=== PATIENT | female | born 1945 | race Caucasian/White ===

== ENCOUNTER → 2017-01-04 | Day surgery (SDC) | payer MEDICAID, MEDICARE ==
[~2017-01-04] VITALS: Ht 175.3 cm; Wt 86.2 kg
[~2017-01-04] MED LIST: ACETAMINOPHEN 325 MG TAB PO PRN; AMIT25TA PO; ASPI1TAB PO; AZEL0.1S3; AcetaZOLAMIDE 500 MG ER CAP PO ONE; BSS with VANC/TOB/EPI for EYE CASES IR ONE; CEFUROXIME 1MG/0.1ML INTRACAMERAL INJ As Ordered ONE; CITA40TA4 PO; CRES5TAB PO; CYCLOPENTOLATE 2% OPHTH SOLN 2ML BTL As Ordered ONE; CYCLOPENTOLATE 2% OPHTH SOLN 2ML BTL OD ONE; D5W/0.2% SODIUM CHLORIDE 1,000 ML IV SCH; DEXI60CA PO; HEALON DUET (HEALON 10MG/ML 0.55ML & HEALON ENDOCOAT 30MG/ML 0.85ML) As Ordered ONE; KETOROLAC 0.5% OPHTH SOLN OD ONE; LATA5OPD OU; LEVE1INJ5 SC; LIDOCAINE 1% SDV 5 ML VIAL As Ordered ONE; LIDOCAINE 4% INJ 5 ML AMP OU ONE; LISI-538 PO; MIDAZOLAM INJ 2 MG/2 ML VIAL (J2250) As Ordered ONE; MONT10TA2 PO; OFLOXACIN 0.3 % (OCUFLOX) OPTH SOL 5ML As Ordered ONE; OFLOXACIN 0.3 % (OCUFLOX) OPTH SOL 5ML OD ONE; PERCOCET PO; PHENYLEPHRINE 2.5% OPHTH SOL 2ML As Ordered ONE; PHENYLEPHRINE 2.5% OPHTH SOL 2ML OD ONE; POVIDONE-IODINE 5% OPHTH PREP SOL 30ML As Ordered ONE; PROPARACAINE 0.5% OPHTH SOL 15ML OD PRN; RALO1TAB PO; RANI150C PO; TRAZ50TA4 PO; TRIA37.53 PO; TRIMETHOBENZAMIDE 300 MG CAP PO PRN; TROPICAMIDE 1% OPHTH SOLN 2ML As Ordered ONE; TROPICAMIDE 1% OPHTH SOLN 2ML OD ONE; fentaNYL 100 MCG/2 ML INJECTION (J3010) As Ordered ONE
[2017-01-04 09:40] VITALS: BP 144/73
--- NOTE | 2017-01-04 21:07 | RO ---
DATE OF PROCEDURE: 01/04/2017 PREPROCEDURE DIAGNOSES: Cataract of right eye. Myosis right eye. Glaucoma right eye. POSTPROCEDURE DIAGNOSES: Cataract of right eye. Myosis right eye. Glaucoma right eye. PROCEDURE: Phacoemulsification with intraocular lens implantation with the use of Malyugin ring. Endocyclophotocoagulation and iStent right eye. Intraocular lens power used was Hoya, power 21 diopters. SURGEON: Jonathan Jimenez MD ICT MANAGERS: None. ANESTHESIA: Local IV standby. COMPLICATIONS: None. DESCRIPTION OF PROCEDURE: The patient was brought to the operating room and laid in supine position. the right eye was prepped and draped in a sterile fashion for ophthalmic surgery. Lid speculum was placed. A sideport incision was made and EndoCoat was injected into the anterior chamber. Temporal clear corneal incision was then made with a 2.5 mm keratome, followed by capsulorrhexis. Hydrodissection was then done followed by phacoemulsification in a divide and conquer method followed by aspiration of the cortical material using irrigation and aspiration cannula. Healon was then placed into the capsular bag and intraocular lens inserted. Healon was then placed in the ciliary sulcus to visualize the ciliary processes with the help of the EndoProbe on the video screen. Endocyclophotocoagulation was then done around 290 degrees at 0.25 mV. Good results were noted by the shrinking of the ciliary processes on the video screen. Healon was then placed into the anterior chamber to visualize the inferonasal trabecular meshwork under high magnification with the help of the Gonio lens. IStent was placed. Good blood reflex was noted. Excess viscoelastic was then aspirated, wound hydrated and lid speculum removed. Patient returned to the recovery room in stable condition.
== END | disposition home or self-care (01) ==
LOC: M SDC 06:43
PROVIDERS: ATTEND Ophthalmology
DX: H26.9 Unspecified cataract (principal); H40.811 Glaucoma with increased episcleral venous pressure, right eye; H57.03 Miosis; E10.9 Type 1 diabetes mellitus without complications; Z79.4 Long term (current) use of insulin; Z79.82 Long term (current) use of aspirin; Z79.899 Other long term (current) drug therapy; K21.9 Gastro-esophageal reflux disease without esophagitis; K44.9 Diaphragmatic hernia without obstruction or gangrene; F32.9 Major depressive disorder, single episode, unspecified; J45.909 Unspecified asthma, uncomplicated; Z88.1 Allergy status to other antibiotic agents
CPT/HCPCS: 66183; 66711; 66982; C1783; J2250; J3010; V2632

== ENCOUNTER → 2017-02-08 | Day surgery (SDC) | payer MEDICARE, MEDICAID ==
[~2017-02-08] VITALS: Ht 175.3 cm; Wt 86.0 kg
[~2017-02-08] MED LIST changes: -CYCLOPENTOLATE 2% OPHTH SOLN 2ML BTL As Ordered ONE; -CYCLOPENTOLATE 2% OPHTH SOLN 2ML BTL OD ONE; +CYCLOPENTOLATE 2% OPHTH SOLN 2ML BTL OS ONE; -D5W/0.2% SODIUM CHLORIDE 1,000 ML IV SCH; -DEXI60CA PO; +DEXI60CA2 PO; -KETOROLAC 0.5% OPHTH SOLN OD ONE; +KETOROLAC 0.5% OPHTH SOLN OS ONE; +LR 500 ML IV SCH; +MOXIFLOXACIN IN BSS 0.25MG/0.25ML INTRACAMERAL INJ (OR EYE ONLY)(J2280) As Ordered ONE; -OFLOXACIN 0.3 % (OCUFLOX) OPTH SOL 5ML As Ordered ONE; -OFLOXACIN 0.3 % (OCUFLOX) OPTH SOL 5ML OD ONE; +OFLOXACIN 0.3 % (OCUFLOX) OPTH SOL 5ML OS ONE; -PHENYLEPHRINE 2.5% OPHTH SOL 2ML As Ordered ONE; -PHENYLEPHRINE 2.5% OPHTH SOL 2ML OD ONE; +PHENYLEPHRINE 2.5% OPHTH SOL 2ML OS ONE; -PROPARACAINE 0.5% OPHTH SOL 15ML OD PRN; +PROPARACAINE 0.5% OPHTH SOL 15ML OS PRN; +TRAZ50TA11 PO; -TRAZ50TA4 PO; +TRIAMCINOLONE PRES FR 40 MG/ML 1ML(TRIESENCE)(OR EYE ONLY)(J3300 PER 1MG) As Ordered ONE; -TROPICAMIDE 1% OPHTH SOLN 2ML As Ordered ONE; -TROPICAMIDE 1% OPHTH SOLN 2ML OD ONE; +TROPICAMIDE 1% OPHTH SOLN 2ML OS ONE
--- NOTE | 2017-02-08 13:48 | RO ---
DATE OF PROCEDURE: 02/08/2017 PREPROCEDURE DIAGNOSIS: Glaucoma and cataract left eye. POSTPROCEDURE DIAGNOSIS: Glaucoma and cataract left eye. PROCEDURE: Phacoemulsification with intraocular lens implantation of PCB00 power 22.5 diopter and endocyclophotocoagulation right eye along with iStent placement right eye. SURGEON: Jonathan Jimenez MD ELECTRIC TRUCK OPERATOR: None. ANESTHESIA: DESCRIPTION OF PROCEDURE: The patient was brought to the operating room and laid in supine position. The eye was prepped and draped in a sterile fashion for opthalmic surgery and a lid speculum was placed. Side port incision was made and EndoCoat was injected into the anterior chamber. Temporal clear corneal incision was then made with a 2.5 mm Keratome followed by capsulorrhexis and hydrodissection. Phacoemulsification was then carried out with a divide and conquer method followed by aspiration of the cortical material. Healon was then placed in the within the capsular bag and intraocular lens injected without any complication. Healon was then placed in the ciliary sulcus and endocyclophotocoagulation was done under the guidance of the video screen with the help of the EndoProbe. 280 degrees were treated at 0.30 mV. Healon was then placed in the anterior chamber under high magnification with the patient's head turned away. With the help of the Gonio lens, the iStent was attempted in the inferonasal quadrant. After a couple of attempts, the procedure was aborted because of increased reflux of blood which made the vision less then optimal. At the end of the case, excess viscoelastic was aspirated. Wound was hydrated. Lid speculum removed. Case discussed with the patient and returned to recovery room in stable condition where the case was discussed in detail.
[2017-02-08 14:14] VITALS: BP 136/65
== END | disposition home or self-care (01) ==
LOC: M SDC 11:53
PROVIDERS: ATTEND Ophthalmology
DX: H26.9 Unspecified cataract (principal); H40.9 Unspecified glaucoma; I12.9 Hypertensive chronic kidney disease with stage 1 through stage 4 chronic kidney disease, or unspecified chronic kidney disease; E10.22 Type 1 diabetes mellitus with diabetic chronic kidney disease; N18.2 Chronic kidney disease, stage 2 (mild); G43.909 Migraine, unspecified, not intractable, without status migrainosus; K21.9 Gastro-esophageal reflux disease without esophagitis; M15.0 Primary generalized (osteo)arthritis; F41.9 Anxiety disorder, unspecified; K44.9 Diaphragmatic hernia without obstruction or gangrene; F32.9 Major depressive disorder, single episode, unspecified; J45.909 Unspecified asthma, uncomplicated; Z88.1 Allergy status to other antibiotic agents; Z79.899 Other long term (current) drug therapy; Z79.4 Long term (current) use of insulin; Z79.82 Long term (current) use of aspirin; Z87.19 Personal history of other diseases of the digestive system
CPT/HCPCS: 66711; 66984; C1783; J2250; J2280; J3010; V2632

== ENCOUNTER → 2024-03-28 | Outpatient (REF) | payer MEDICARE, MEDICAID ==
[~2024-03-28] MED LIST changes: -ACETAMINOPHEN 325 MG TAB PO PRN; -AMIT25TA PO; +AMIT25TA19 PO; -ASPI1TAB PO; +ASPI81TA26 PO; -AcetaZOLAMIDE 500 MG ER CAP PO ONE; -BSS with VANC/TOB/EPI for EYE CASES IR ONE; -CEFUROXIME 1MG/0.1ML INTRACAMERAL INJ As Ordered ONE; -CITA40TA4 PO; +CITA40TA7 PO; -CYCLOPENTOLATE 2% OPHTH SOLN 2ML BTL OS ONE; -HEALON DUET (HEALON 10MG/ML 0.55ML & HEALON ENDOCOAT 30MG/ML 0.85ML) As Ordered ONE; +INSU100I6 SC; -KETOROLAC 0.5% OPHTH SOLN OS ONE; +LATA0.0013 OU; -LATA5OPD OU; -LEVE1INJ5 SC; -LIDOCAINE 1% SDV 5 ML VIAL As Ordered ONE; -LIDOCAINE 4% INJ 5 ML AMP OU ONE; -LISI-538 PO; +LISI20TA33 PO; -LR 500 ML IV SCH; -MIDAZOLAM INJ 2 MG/2 ML VIAL (J2250) As Ordered ONE; -MONT10TA2 PO; +MONT10TA97 PO; -MOXIFLOXACIN IN BSS 0.25MG/0.25ML INTRACAMERAL INJ (OR EYE ONLY)(J2280) As Ordered ONE; -OFLOXACIN 0.3 % (OCUFLOX) OPTH SOL 5ML OS ONE; -PHENYLEPHRINE 2.5% OPHTH SOL 2ML OS ONE; -POVIDONE-IODINE 5% OPHTH PREP SOL 30ML As Ordered ONE; -PROPARACAINE 0.5% OPHTH SOL 15ML OS PRN; +TRAZ-252 PO; -TRAZ50TA11 PO; -TRIA37.53 PO; +TRIA37.577 PO; -TRIAMCINOLONE PRES FR 40 MG/ML 1ML(TRIESENCE)(OR EYE ONLY)(J3300 PER 1MG) As Ordered ONE; -TRIMETHOBENZAMIDE 300 MG CAP PO PRN; -TROPICAMIDE 1% OPHTH SOLN 2ML OS ONE; -fentaNYL 100 MCG/2 ML INJECTION (J3010) As Ordered ONE
== END ==
LOC: M LAB REF 16:49
PROVIDERS: ATTEND Nurse Practitioner Family
DX: N39.0 Urinary tract infection, site not specified (principal)